=== PATIENT | female | born 1945 | race Caucasian/White ===

== ENCOUNTER → 2019-07-26 14:56 | Outpatient (BNVA) | payer MEDICARE, OTHER, SELFPAY | PROVIDERS: Family Provider Family Medicine; PCP Internal Medicine Rheumatology; Referring Provider Internal Medicine Rheumatology; Visit Provider Internal Medicine Rheumatology | DX: M35.00 Sjogren syndrome, unspecified (principal); Z79.899 Other long term (current) drug therapy | CPT/HCPCS: 36415; 80053; 82306; 85025; 85651 ==

== ENCOUNTER 2019-08-07 14:19 | Outpatient (CLI) | payer MEDICARE, OTHER, SELFPAY ==
[2019-08-07 14:00] VITALS: BP 143/75; PULSE 81; RESP 16; TEMP 36.8; O2SAT 97
[2019-08-07 14:45] VITALS: BP 157/75; PULSE 71; RESP 16; TEMP 36.8; O2SAT 98
[2019-08-07] MEDS: denosumab 60 mg SDV SUBCUT (14:49)
== END 2019-08-07 14:20 | disposition home or self-care (01) ==
LOC: RHEOACUTE 14:25
PROVIDERS: Family Provider Family Medicine; PCP Internal Medicine Rheumatology; Visit Provider Internal Medicine Rheumatology
DX: M81.0 Age-related osteoporosis without current pathological fracture (principal)
CPT/HCPCS: 96372; J0897

== ENCOUNTER → 2019-09-13 14:31 | Outpatient (BNVA) | payer MEDICARE, OTHER, SELFPAY | PROVIDERS: Family Provider Family Medicine; PCP Internal Medicine Rheumatology; Referring Provider Family Medicine; Visit Provider Podiatrist Foot & Ankle Surgery | DX: M79.672 Pain in left foot (principal); M79.89 Other specified soft tissue disorders; M20.12 Hallux valgus (acquired), left foot; S92.355D Nondisplaced fracture of fifth metatarsal bone, left foot, subsequent encounter for fracture with routine healing; X58.XXXD Exposure to other specified factors, subsequent encounter | CPT/HCPCS: 73630; L4361 ==

== ENCOUNTER 2019-09-13 15:50 | Outpatient (CLI) | payer MEDICARE, OTHER, SELFPAY | END 2019-09-13 15:51 | disposition home or self-care (01) | LOC: SPT 15:51 | PROVIDERS: Family Provider Family Medicine; PCP Internal Medicine Rheumatology; Visit Provider Podiatrist Foot & Ankle Surgery | DX: S92.355D Nondisplaced fracture of fifth metatarsal bone, left foot, subsequent encounter for fracture with routine healing (principal); X58.XXXD Exposure to other specified factors, subsequent encounter | CPT/HCPCS: L4361 ==

== ENCOUNTER 2019-10-04 13:45 | Outpatient (CLI) | payer MEDICARE, OTHER, SELFPAY ==
--- NOTE | 2019-10-04 13:53 | XR_ITS ---
WS: [id number] XR foot LT min 3V* [id number] REASON FOR EXAM: left fifth metatarsal fracture FINDINGS: A fracture through the base of the fifth metacarpal tarsal is noted. There is separation of the fracture parts seen. There is soft tissue swelling overriding the head of the first metatarsal is cystic changes in the he ad of the first metacarpal tarsal is noted differential includes gouty arthritis. Comparison is made to previous exam of September 13, 2019. XR/XR foot LT min 3V* [id number] IMPRESSION: fracture of the proximal fifth metacarpal tarsal Hallux valgus changes with cystic changes of the head of the first metatarsal a nd soft tissue swelling.
== END 2019-10-04 13:46 | disposition home or self-care (01) ==
LOC: RAD 13:51
PROVIDERS: Family Provider Family Medicine; PCP Internal Medicine Rheumatology; Visit Provider Podiatrist Foot & Ankle Surgery
DX: S92.352A Displaced fracture of fifth metatarsal bone, left foot, initial encounter for closed fracture (principal); X58.XXXA Exposure to other specified factors, initial encounter; M20.12 Hallux valgus (acquired), left foot
CPT/HCPCS: 73630

== ENCOUNTER → 2019-11-20 11:00 | Outpatient (BNVA) | payer MEDICARE, OTHER, SELFPAY | PROVIDERS: Family Provider Family Medicine; PCP Internal Medicine Rheumatology; Visit Provider Internal Medicine Rheumatology | DX: Z79.899 Other long term (current) drug therapy (principal); M19.90 Unspecified osteoarthritis, unspecified site; Z11.59 Encounter for screening for other viral diseases; Z72.89 Other problems related to lifestyle | CPT/HCPCS: 36415; 80076; 82565; 85025; 85651; 86140; 86480; 86704; 86803; 87340 ==

== ENCOUNTER → 2020-01-08 14:34 | Outpatient (BNVA) | payer MEDICARE, OTHER, SELFPAY | PROVIDERS: Family Provider Family Medicine; PCP Internal Medicine Rheumatology; Visit Provider Podiatrist Foot & Ankle Surgery | DX: S92.355K Nondisplaced fracture of fifth metatarsal bone, left foot, subsequent encounter for fracture with nonunion (principal); X58.XXXD Exposure to other specified factors, subsequent encounter; M21.612 Bunion of left foot | CPT/HCPCS: 73630 ==

== ENCOUNTER → 2020-01-23 13:04 | Outpatient (BNVA) | payer MEDICARE, OTHER, SELFPAY | PROVIDERS: Family Provider Family Medicine; PCP Internal Medicine Rheumatology; Visit Provider Internal Medicine Rheumatology | DX: M19.90 Unspecified osteoarthritis, unspecified site (principal); Z79.899 Other long term (current) drug therapy | CPT/HCPCS: 36415; 80076; 82565; 85025; 85651; 86140 ==

== ENCOUNTER 2020-02-27 10:26 | Outpatient (CLI) | payer MEDICARE, OTHER, SELFPAY ==
[2020-02-27 10:38] VITALS: BP 135/77; PULSE 71; RESP 16; TEMP 36.6; O2SAT 97
[2020-02-27] MEDS: denosumab 60 mg SDV SUBCUT (10:40)
[2020-02-27 11:04] VITALS: BP 144/75; PULSE 64; RESP 16; TEMP 36.6; O2SAT 96
== END 2020-02-27 10:27 | disposition home or self-care (01) ==
LOC: RHEOACUTE 10:27
PROVIDERS: Family Provider Family Medicine; PCP Internal Medicine Rheumatology; Visit Provider Internal Medicine Rheumatology
DX: M81.0 Age-related osteoporosis without current pathological fracture (principal)
CPT/HCPCS: 96372; J0897

== ENCOUNTER 2020-07-23 14:18 | Outpatient (CLI) | payer MEDICARE, OTHER, SELFPAY ==
--- NOTE | 2020-07-23 14:25 | MM_ITS ---
WS: [id number] BILATERAL SCREENING DIGITAL MAMMOGRAM WITH CAD HISTORY: SCREENING COMPARISON: 07/17/2019 and 05/27/2018 Bilateral CC and MLO views submitted. Computer aided detection analyzed. Breast composition: The breasts are heterogeneously dense, which may obscure small masses. No suspici ous masses, microcalcifications or architectural distortion. There are small bilateral calcifications . No suspicious calcifications or grouping. MM/[id number] IMPRESSION: BI-RADS: 2-Benign FOLLOW UP: 1 Year Follow-up
== END 2020-07-23 14:19 | disposition home or self-care (01) ==
LOC: RADSHAW 14:23
PROVIDERS: PCP Family Medicine; Visit Provider Family Medicine
DX: Z12.31 Encounter for screening mammogram for malignant neoplasm of breast (principal)
CPT/HCPCS: 77067

== ENCOUNTER → 2021-01-30 11:06 | Outpatient (BNVA) | payer MEDICARE, OTHER, SELFPAY | PROVIDERS: PCP Family Medicine; Visit Provider Internal Medicine Rheumatology | DX: M35.00 Sjogren syndrome, unspecified (principal); L25.9 Unspecified contact dermatitis, unspecified cause; Z79.899 Other long term (current) drug therapy; M81.0 Age-related osteoporosis without current pathological fracture; M47.892 Other spondylosis, cervical region; M47.894 Other spondylosis, thoracic region; Z71.89 Other specified counseling; R76.8 Other specified abnormal immunological findings in serum | CPT/HCPCS: 36415; 80076; 82565; 82977; 83516; 85025; 86160; 86431; 99214 ==

== ENCOUNTER 2021-01-30 13:25 | Outpatient (CLI) | payer MEDICARE, OTHER, SELFPAY ==
[2021-01-30 14:02] LABS: Basophils # 0.1 10^3/uL (0.0-0.1); Basophils % 1.1 %; Eosinophils # 0.3 10^3/uL (0.0-0.8); Eosinophils % 6.8 %; Hematocrit 41.7 % (37.0-47.0); Mean Corpuscular HGB Conc 33.6 g/dL (30.0-36.0); Mean Corpuscular Hemoglobin 31.1 pg (28.0-34.0); Mean Corpuscular Volume 92.7 fL (81-99); Mean Platelet Volume 9.1 fL (7.4-10.4); Monocytes # 0.6 10^3/uL (0.2-0.9); Monocytes % 13.2 %; Neutrophils # 2.57 10^3/uL (1.8-7.7); Neutrophils % 56.7 %; Nucleated Red Blood Cells % 0 %; Platelet Count 346 10^3/cmm (130-400); Red Cell Distribution Width 12.2 % (12.1-15.1); White Blood Count 4.5 10^3/uL (4.0-10.0)
[2021-01-30 14:23] LABS: Alanine Aminotransferase 14 U/L (0-33); Albumin Level 4.6 g/dL (3.5-5.2); Alkaline Phosphatase 69 IU/L (35-105); Aspartate Amino Transferase 23 U/L (0-32); Gamma Glutamyl Transferase 14 U/L (5-36); Globulin 2.7 g/dL (1.3-4.6); Total Bilirubin 0.3 mg/dL (0.15-1.2); Total Protein 7.3 g/dL (6.6-8.7)
[2021-01-30 21:27] LABS: Complement C3 112 mg/dL (90-180)
[2021-01-31 12:02] LABS: Cyclic Citrullinated Peptide <16 UNITS
[2021-02-02 12:37] LABS: ANCA Interp Negative (Negative)
== END 2021-01-30 13:26 | disposition home or self-care (01) ==
PROVIDERS: PCP Family Medicine; Visit Provider Internal Medicine Rheumatology
DX: R76.8 Other specified abnormal immunological findings in serum (principal); M35.00 Sjogren syndrome, unspecified; Z79.899 Other long term (current) drug therapy
CPT/HCPCS: 36415; 80076; 82565; 82977; 83516; 85025; 86160; 86431

== ENCOUNTER → 2021-04-28 12:53 | Outpatient (BNVA) | payer MEDICARE, OTHER, SELFPAY | PROVIDERS: PCP Family Medicine; Visit Provider Internal Medicine Rheumatology | DX: M35.00 Sjogren syndrome, unspecified (principal); L25.9 Unspecified contact dermatitis, unspecified cause; Z79.899 Other long term (current) drug therapy; M81.0 Age-related osteoporosis without current pathological fracture; M47.892 Other spondylosis, cervical region; M47.894 Other spondylosis, thoracic region; Z71.89 Other specified counseling | CPT/HCPCS: 99214 ==

== ENCOUNTER 2021-05-14 11:21 | Outpatient (CLI) | payer MEDICARE, OTHER, SELFPAY ==
[2021-05-14 11:48] LABS: Basophils # 0.1 10^3/uL (0.0-0.1); Eosinophils # 0.3 10^3/uL (0.0-0.8); Eosinophils % 3.9 %; Hematocrit 41.9 % (37.0-47.0); Hemoglobin 13.8 g/dL (11.5-15.3); Mean Corpuscular HGB Conc 32.9 g/dL (30.0-36.0); Mean Corpuscular Hemoglobin 31.9 pg (28.0-34.0); Mean Corpuscular Volume 96.8 fl (81-99); Monocytes # 0.6 10^3/uL (0.2-0.9); Monocytes % 7.7 %; Neutrophils # 5.22 10^3/uL (1.8-7.7); Neutrophils % 73.1 %; Nucleated Red Blood Cells % 0 %; Platelet Count 393 10^3/cmm (130-400); Red Blood Count 4.33 10^6/uL (4.1-5.3); Red Cell Distribution Width 13.9 % (12.1-15.1); White Blood Count 7.1 10^3/uL (4.0-10.0)
[2021-05-14 12:15] LABS: Alanine Aminotransferase 30 U/L (0-33); Albumin Level 4.5 g/dL (3.5-5.2); Alkaline Phosphatase 79 IU/L (35-105); Aspartate Amino Transferase 31 U/L (0-32); C Reactive Protein 1.7 mg/L (0.0-4.9); Globulin 2.8 g/dL (1.3-4.6); Total Bilirubin 0.3 mg/dL (0.15-1.2); Total Protein 7.3 g/dL (6.6-8.7)
== END 2021-05-14 11:22 | disposition home or self-care (01) ==
LOC: LAB 11:30
PROVIDERS: PCP Family Medicine; Visit Provider Internal Medicine Rheumatology
DX: M35.00 Sjogren syndrome, unspecified (principal); Z79.899 Other long term (current) drug therapy
CPT/HCPCS: 36415; 80076; 82565; 85025; 86140

== ENCOUNTER 2021-08-27 11:15 | Outpatient (CLI) | payer MEDICARE, OTHER, SELFPAY ==
--- NOTE | 2021-08-27 11:24 | MM_ITS ---
WS: [id number] BILATERAL DIGITAL SCREENING MAMMOGRAPHY WITH CAD CLINICAL INFORMATION: SCREENING HISTORY: Screening mammogram. No current complaints. COMPARISON: July 23, 2020 TECHNIQUE: Bilateral CC and MLO views. FINDINGS: The breasts are composed of heterogeneous fibroglandular density tissue, which can limit the detectio n of small underlying mass lesions. A few incidental punctate calcifications. No suspicious mass, asy mmetry, calcifications, or architectural distortion. No evidence of malignancy. MM/[id number] IMPRESSION: BI-RADS: 2-Benign FOLLOW UP: 1 Year Follow-up Recommend return to annual screening mammography.
== END 2021-08-27 11:16 | disposition home or self-care (01) ==
PROVIDERS: PCP Family Medicine; Visit Provider Family Medicine
DX: Z12.31 Encounter for screening mammogram for malignant neoplasm of breast (principal)
CPT/HCPCS: 77067

== ENCOUNTER → 2021-09-02 13:06 | Outpatient (BNVA) | payer MEDICARE, OTHER, SELFPAY | PROVIDERS: PCP Family Medicine; Visit Provider Internal Medicine Rheumatology | DX: M35.00 Sjogren syndrome, unspecified (principal); L25.9 Unspecified contact dermatitis, unspecified cause; Z79.899 Other long term (current) drug therapy; M81.0 Age-related osteoporosis without current pathological fracture; M47.812 Spondylosis without myelopathy or radiculopathy, cervical region; M47.814 Spondylosis without myelopathy or radiculopathy, thoracic region; Z71.89 Other specified counseling | CPT/HCPCS: 99214 ==

== ENCOUNTER 2021-09-16 10:21 | Outpatient (CLI) | payer MEDICARE, OTHER, SELFPAY ==
[2021-09-16 11:09] LABS: Basophils # 0.1 10^3/uL (0.0-0.1); Basophils % 1.1 %; Eosinophils # 0.3 10^3/uL (0.0-0.8); Eosinophils % 4.5 %; Hematocrit 41.1 % (37.0-47.0); Hemoglobin 13.7 g/dL (11.5-15.3); Lymphocytes # 1.5 10^3/uL (0.8-4.8); Lymphocytes % 20.4 %; Mean Corpuscular HGB Conc 33.3 g/dL (30.0-36.0); Mean Corpuscular Hemoglobin 33.5 pg (28.0-34.0); Mean Corpuscular Volume 100.5 fl (81-99); Mean Platelet Volume 9.6 fL (7.4-10.4); Monocytes # 1.3 10^3/uL (0.2-0.9); Monocytes % 18.1 %; Neutrophils # 4.12 10^3/uL (1.8-7.7); Neutrophils % 55.6 %; Nucleated Red Blood Cells % 0 %; Platelet Count 355 10^3/cmm (130-400); Red Blood Count 4.09 10^6/uL (4.1-5.3); Red Cell Distribution Width 14.1 % (12.1-15.1); White Blood Count 7.4 10^3/uL (4.0-10.0)
== END 2021-09-16 10:22 | disposition home or self-care (01) ==
LOC: LAB 10:34
PROVIDERS: PCP Family Medicine; Visit Provider Internal Medicine Rheumatology
DX: M35.00 Sjogren syndrome, unspecified (principal); Z79.899 Other long term (current) drug therapy
CPT/HCPCS: 85025

== ENCOUNTER → 2021-12-23 08:17 | Day surgery (SDC) | payer MEDICARE, OTHER, SELFPAY ==
[2021-12-23] MEDS: denosumab 60 mg SDV SUBCUT (08:31)
[2021-12-23 08:36] VITALS: BP 177/85; PULSE 75; RESP 18; TEMP 35.9; O2SAT 99
== END ==
LOC: GILAB 08:18
PROVIDERS: PCP Family Medicine; Visit Provider Family Medicine
DX: M81.0 Age-related osteoporosis without current pathological fracture (principal)
CPT/HCPCS: 96372; J0897

== ENCOUNTER → 2022-04-29 14:33 | Outpatient (BNVA) | payer MEDICARE, OTHER, SELFPAY | PROVIDERS: PCP Family Medicine; Visit Provider Internal Medicine Rheumatology | DX: M35.00 Sjogren syndrome, unspecified (principal); M81.0 Age-related osteoporosis without current pathological fracture; Z79.899 Other long term (current) drug therapy; L25.9 Unspecified contact dermatitis, unspecified cause; Z71.89 Other specified counseling; M47.892 Other spondylosis, cervical region; M47.894 Other spondylosis, thoracic region | CPT/HCPCS: 36415; 80076; 82306; 82310; 82565; 85025; 85651; 86140; 99214 ==

== ENCOUNTER → 2022-06-30 08:49 | Day surgery (SDC) | payer MEDICARE, OTHER, SELFPAY ==
--- NOTE | 2022-06-30 09:00 | PC.NURSE ---
Pt to GI infusions for Prolia injection. Recent Calcium level on 04/29/[address] Quick's office. Marisol stated Calcium level from April sufficient for Prolia injection today. No new lab necessary.
[2022-06-30] MEDS: denosumab 60 mg SDV SUBCUT (09:05)
[2022-06-30 09:12] VITALS: BP 162/76; PULSE 72; RESP 18; TEMP 36.1; O2SAT 98
== END ==
PROVIDERS: PCP Family Medicine; Visit Provider Family Medicine
DX: M81.0 Age-related osteoporosis without current pathological fracture (principal)
CPT/HCPCS: 96372; J0897

== ENCOUNTER → 2022-08-24 13:43 | Outpatient (BNVA) | payer MEDICARE, OTHER, SELFPAY | PROVIDERS: PCP Family Medicine; Visit Provider Internal Medicine Rheumatology | DX: M35.00 Sjogren syndrome, unspecified (principal); M54.9 Dorsalgia, unspecified; L25.9 Unspecified contact dermatitis, unspecified cause; M81.0 Age-related osteoporosis without current pathological fracture; Z79.899 Other long term (current) drug therapy; Z71.89 Other specified counseling; M47.892 Other spondylosis, cervical region; M47.894 Other spondylosis, thoracic region | CPT/HCPCS: 72040; 72072; 99214 ==

== ENCOUNTER 2022-09-24 08:21 | Outpatient (CLI) | payer MEDICARE, OTHER, SELFPAY ==
--- NOTE | 2022-09-24 08:33 | MM_ITS ---
WS: [id number] Bilateral screening 3D tomosynthesis digital mammogram, 09/24/2022 Clinical Data: SCREENING Comparison: 04/07/2022, 07/23/2020, 07/17/2019, 05/27/2018, 05/25/2017, 04/01/2016, 03/20/2013, 03/14/2014, 02/22/2013, 02/15, 01/27/2012, 12/06/2009, 10/26/2008. Findings: The breast parenchymal pattern shows air genies density. No spiculated masses or clustered calcificat ions are seen. There are no secondary signs of carcinoma. MM/[id number] Impression: 1. Negative bilateral mammogram unchanged. 2. Recommend annual screening mammograms. BIRADS: 1-Negative FOLLOW UP: 1 Year Follow-up The CAD instrument checker was used.
== END 2022-09-24 08:22 | disposition home or self-care (01) ==
LOC: RAD 08:24
PROVIDERS: PCP Family Medicine; Visit Provider Family Medicine
DX: Z12.31 Encounter for screening mammogram for malignant neoplasm of breast (principal)
CPT/HCPCS: 77063; 77067

== ENCOUNTER → 2022-11-30 13:26 | Outpatient (BNVA) | payer MEDICARE, OTHER, SELFPAY | PROVIDERS: PCP Family Medicine; Visit Provider Internal Medicine Rheumatology | DX: L25.9 Unspecified contact dermatitis, unspecified cause (principal); M35.00 Sjogren syndrome, unspecified; M81.0 Age-related osteoporosis without current pathological fracture; Z79.899 Other long term (current) drug therapy; Z71.89 Other specified counseling | CPT/HCPCS: 99214 ==

== ENCOUNTER → 2022-12-21 12:43 | Day surgery (SDC) | payer MEDICARE, OTHER, SELFPAY ==
[2022-12-21 12:51] VITALS: BP 153/69; PULSE 76; RESP 18; TEMP 35.6; O2SAT 97
[2022-12-21] MEDS: denosumab 60 mg SDV SUBCUT (12:54)
--- NOTE | 2022-12-21 13:00 | PC.NURSE ---
Pt to GI infusions for Prolia injection. Calcium from November 21 noted at 8.6. Prolia given as ordered.
== END ==
PROVIDERS: PCP Family Medicine; Visit Provider Family Medicine
DX: M81.0 Age-related osteoporosis without current pathological fracture (principal); Z79.899 Other long term (current) drug therapy
CPT/HCPCS: 96372; J0897

== ENCOUNTER → 2023-03-29 13:12 | Outpatient (BNVA) | payer MEDICARE, OTHER, SELFPAY | PROVIDERS: PCP Family Medicine; Visit Provider Internal Medicine Rheumatology | DX: L25.9 Unspecified contact dermatitis, unspecified cause (principal); M35.00 Sjogren syndrome, unspecified; M81.0 Age-related osteoporosis without current pathological fracture; Z79.899 Other long term (current) drug therapy; Z71.89 Other specified counseling | CPT/HCPCS: 99214 ==

== ENCOUNTER 2023-06-25 08:52 | Oncology outpatient (recurring) (ONCR) | payer MEDICARE, OTHER, SELFPAY ==
[2023-06-25 09:48] LABS: Albumin Level 4.3 g/dL (3.5-5.2); Calcium 9.5 mg/dL (8.5-10.5)
[2023-06-25] MEDS: denosumab 60 mg SDV SUBCUT (09:53)
[2023-06-25 10:04] LABS: 25 Hydroxy Vitamin D 53 ng/mL (30-100)
== END 2023-07-18 23:59 | disposition home or self-care (01) ==
LOC: ONCMED 08:53
PROVIDERS: Internal Medicine Rheumatology; PCP Family Medicine; Visit Provider Family Medicine
DX: M81.0 Age-related osteoporosis without current pathological fracture (principal)
CPT/HCPCS: 36415; 82040; 82306; 82310; 82565; 96372; J0897

== ENCOUNTER → 2024-01-24 13:20 | Outpatient (BNVA) | payer MEDICARE, OTHER, SELFPAY | PROVIDERS: PCP Family Medicine; Visit Provider Internal Medicine Rheumatology | DX: L25.9 Unspecified contact dermatitis, unspecified cause (principal); M35.00 Sjogren syndrome, unspecified; M81.0 Age-related osteoporosis without current pathological fracture; M79.7 Fibromyalgia; M47.814 Spondylosis without myelopathy or radiculopathy, thoracic region; M47.812 Spondylosis without myelopathy or radiculopathy, cervical region; L93.2 Other local lupus erythematosus; Z71.85 Encounter for immunization safety counseling; Z79.899 Other long term (current) drug therapy | CPT/HCPCS: 36415; 80076; 82306; 82310; 82565; 85025; 85651; 86140; 99214 ==

== ENCOUNTER 2024-01-31 07:54 | Outpatient (CLI) | payer MEDICARE, OTHER, SELFPAY ==
--- NOTE | 2024-01-31 08:00 | CT_ITS ---
WS: [id number] CT SINUSES TECHNIQUE: Noncontrast CT of the paranasal sinuses with coronal and sagittal reformatted images. CLINICAL INFORMATION: J32.9 - Chronic sinusitis, unspecified COMPARISON: None. DLP: 344.[address] scans at [facility] use at least one of these dose optimization techniques: automated e xposure control; mA and/or kV adjustment per patient size (includes targeted exams where dose is matc hed to clinical indication); or iterative reconstruction. FINDINGS: Complete opacification RIGHT maxillary sinus with increased attenuation and inspissated secretions. O pacification of the RIGHT ostiomeatal unit. LEFT maxillary sinus is well aerated. Frontal sinuses and sphenoid sinuses are well aerated. Mild mucosal thickening in the ethmoid air cells. Small LEFT conc an bullosa. Mild nasal septal deviation measuring 2 to 3 mm LEFT to RIGHT. Mastoid air cells are well aerated. Vascular calcification. Normal posterior nasopharynx. 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 CT/CT sinus wo con* [id number] IMPRESSION: 1. Complete opacification of the RIGHT maxillary sinus with inspissated secret ions. 2. Mild mucosal thickening in the ethmoid air cells. 3. Small LEFT [place] bullosa. 4. Mastoid air cells are well aerated. 5. Vascular calcification.
== END 2024-01-31 07:55 | disposition home or self-care (01) ==
LOC: RAD 07:55
PROVIDERS: PCP Family Medicine; Visit Provider Internal Medicine Rheumatology
DX: J32.0 Chronic maxillary sinusitis (principal); J34.9 Unspecified disorder of nose and nasal sinuses; J34.2 Deviated nasal septum; M26.649 Arthritis of unspecified temporomandibular joint
CPT/HCPCS: 70486

== ENCOUNTER 2024-02-11 09:24 | Oncology outpatient (recurring) (ONCR) | payer MEDICARE, OTHER, SELFPAY ==
[2024-02-11] MEDS: denosumab 60 mg SDV SUBCUT (10:01)
[2024-02-11 10:12] VITALS: BP 146/81; PULSE 81; RESP 16; TEMP 36.5; O2SAT 99
== END 2024-02-16 23:59 | disposition home or self-care (01) ==
PROVIDERS: PCP Family Medicine; Visit Provider Internal Medicine Rheumatology
DX: M81.0 Age-related osteoporosis without current pathological fracture (principal); Z79.899 Other long term (current) drug therapy
CPT/HCPCS: 96372; J0897

== ENCOUNTER → 2024-06-26 11:06 | Outpatient (BNVA) | payer MEDICARE, OTHER, SELFPAY | PROVIDERS: PCP Family Medicine; Visit Provider Internal Medicine Rheumatology | DX: Z79.899 Other long term (current) drug therapy (principal); M35.00 Sjogren syndrome, unspecified; L25.9 Unspecified contact dermatitis, unspecified cause; M81.0 Age-related osteoporosis without current pathological fracture; Z71.89 Other specified counseling; M79.7 Fibromyalgia; M47.814 Spondylosis without myelopathy or radiculopathy, thoracic region; M47.812 Spondylosis without myelopathy or radiculopathy, cervical region | CPT/HCPCS: 36415; 80076; 82565; 85025; 85651; 86140; 99214 ==

== ENCOUNTER → 2024-10-23 11:18 | Outpatient (BNVA) | payer MEDICARE, OTHER, SELFPAY | PROVIDERS: PCP Family Medicine; Visit Provider Internal Medicine Rheumatology | DX: L25.9 Unspecified contact dermatitis, unspecified cause (principal); M35.00 Sjogren syndrome, unspecified; M81.0 Age-related osteoporosis without current pathological fracture; Z79.899 Other long term (current) drug therapy; Z71.89 Other specified counseling | CPT/HCPCS: 99214 ==

== ENCOUNTER 2024-11-22 08:58 | Outpatient (CLI) | payer MEDICARE, OTHER, SELFPAY ==
[2024-11-22 09:24] LABS: Basophils # 0.1 10^3/uL (0.0-0.1); Eosinophils # 0.3 10^3/uL (0.0-0.8); Eosinophils % 4.2 %; Hematocrit 41.8 % (36-47); Lymphocytes # 0.9 10^3/uL (0.8-4.8); Mean Corpuscular HGB Conc 32.5 g/dL (30-55); Mean Corpuscular Hemoglobin 30.8 pg (27-33); Mean Corpuscular Volume 94.6 fl (85-98); Mean Platelet Volume 8.9 fL (7.4-10.4); Monocytes # 0.9 10^3/uL (0.2-0.9); Monocytes % 11.9 %; Neutrophils # 5.51 10^3/uL (1.8-7.7); Neutrophils % 71.5 %; Nucleated Red Blood Cells % 0 %; Platelet Count 337 10^3/cmm (157-399); Red Blood Count 4.42 10^6/uL (3.85-5.65); Red Cell Distribution Width 13.2 % (12.1-15.1); White Blood Count 7.71 10^3/uL (3.29-11.43)
[2024-11-22 09:31] LABS: Erythrocyte Sedimentation Rate 13 mm/hr (0-15)
[2024-11-22 09:53] LABS: Alanine Aminotransferase 22 U/L (0-33); Albumin Level 4.3 g/dL (3.5-5.2); Alkaline Phosphatase 88 U/L (35-105); Aspartate Amino Transferase 25 U/L (0-32); C Reactive Protein 24.3 mg/L (0.0-4.9); Total Bilirubin 0.3 mg/dL (0.15-1.2); Total Protein 7.3 g/dL (6.6-8.7)
[2024-11-22 10:06] LABS: 25 Hydroxy Vitamin D 45 ng/mL (30-100)
== END 2024-11-22 08:59 | disposition home or self-care (01) ==
LOC: LAB 08:59
PROVIDERS: PCP Family Medicine; Visit Provider Internal Medicine Rheumatology
DX: E55.9 Vitamin D deficiency, unspecified (principal); Z79.899 Other long term (current) drug therapy
CPT/HCPCS: 36415; 80076; 82306; 82565; 85025; 85651; 86140

== ENCOUNTER → 2025-02-20 10:20 | Outpatient (BNVA) | payer MEDICARE, OTHER, SELFPAY | PROVIDERS: PCP Family Medicine; Visit Provider Internal Medicine Rheumatology | DX: L30.8 Other specified dermatitis (principal); M35.00 Sjogren syndrome, unspecified; M81.0 Age-related osteoporosis without current pathological fracture; Z79.899 Other long term (current) drug therapy; Z71.85 Encounter for immunization safety counseling | CPT/HCPCS: 36415; 80076; 82306; 82565; 85025; 85651; 86140; 99214 ==